=== PATIENT | female | born 1950 | race Caucasian/White ===

== ENCOUNTER 2022-12-13 09:46 | Day surgery (SDC) | payer MEDICARE ==
[2022-12-09 12:07] LABS: BASOPHILS # (AUTO) 0.1 X10'3 (0-0.2); BASOPHILS % (AUTO) 0.9 % (0-1); EOSINOPHILS # (AUTO) 0.3 X10'3 (0-0.9); EOSINOPHILS % (AUTO) 2.8 % (0-6); LYMPHOCYTES # (AUTO) 2.8 X10'3 (1.1-4.8); LYMPHOCYTES % (AUTO) 30.1 % (21-51); MEAN CORPUSCULAR HEMOGLOBIN 29.3 PG (27.0-31.0); MEAN CORPUSCULAR HGB CONC 32.9 g/dL (33.0-36.5); MEAN PLATELET VOLUME 8.2 FL (7.4-10.4); MONOCYTES # (AUTO) 0.7 X10'3 (0-0.9); MONOCYTES % (AUTO) 7.6 % (2-12); NEUTROPHILS # (AUTO) 5.4 X10'3 (1.8-7.7); NEUTROPHILS % (AUTO) 58.6 % (42-75); PRE OP HEMATOCRIT 42.3 % (35.0-45.0); PRE OP HEMOGLOBIN 13.9 g/dL (12.0-16.0); PRE OP PLATELET COUNT 341 X10'3 (140-440); PRE OP WHITE BLOOD COUNT 9.3 10'3 (4.8-10.8); RED BLOOD COUNT 4.76 X10'6 (4.20-5.60); RED CELL DISTRIBUTION WIDTH 13.5 % (11.5-14.5)
[2022-12-09 12:18] LABS: ALBUMIN 3.6 G/DL (3.4-5.0); ALBUMIN/GLOBULIN RATIO 1.1 (1.1-1.5); ALKALINE PHOSPHATASE 85 IU/L (46-116); BLOOD UREA NITROGEN 15 MG/DL (7-18); BUN/CREATININE RATIO 14.9 (10.0-20.0); CALCIUM 9.1 MG/DL (8.5-10.1); CHLORIDE 102 MMOL/L (99-107); CREATININE 1.01 MG/DL (0.40-0.90); PRE OP ALT 25 U/L (30-65); PRE OP ANION GAP 8 (8-16); PRE OP AST 18 U/L (10-37); PRE OP BILIRUB, TOTAL 0.4 MG/DL (0.0-1.0); PRE OP GLUCOSE 110 MG/DL (70-104); PRE OP SODIUM 141 MMOL/L (135-145); TOTAL CARBON DIOXIDE 30.7 MMOL/L (24-32); TOTAL PROTEIN 6.8 G/DL (6.4-8.2); eGFR 54 ML/MIN
[2022-12-13] VITALS (7 sets, daily range): BP systolic 145–169; BP diastolic 64–80; PULSE 61–78; RESP 10–17; TEMP 97.9; O2SAT 93–98
[~2022-12-13] VITALS: Ht 157.5 cm; Wt 63.3 kg
[~2022-12-13 09:46] MED LIST: AMIT50TA15 PO; ASCO-134 PO; AZEL137S4 BOTHNARES; BUPR-72 PO; CALC-723 PO; CHOL400T32 PO; CYAN-34 PO; DIGO250T2 PO; GABA-530 PO; HYDR-3965 PO; LEVO100T9 PO; METF-436 PO; OMEP40CA21 PO; ONDA8TAB13 PO; famotidine 20mg tablet PO ONE; ringers solution, lacted 1,000 ML IV SCH
[2022-12-13] MEDS ORDERED: LIDOcaine 4% (40 mg/ml) topical solution 50ml MM ONE (11:20)
[2022-12-13] MEDS ORDERED: epiNEPHrine 1 mg/ml inj IR PRN (11:20)
[2022-12-13] MEDS ORDERED: aprepitant 40mg capsule PO ONE (12:00)
[2022-12-13] MEDS ORDERED: morphine 4 MG/ML inj SYRINge IV PRN (12:10)
[2022-12-13] MEDS ORDERED: labetalol 20mg/4ml (5mg/ml) syringe IV PRN (12:10)
[2022-12-13] MEDS ORDERED: ondansetron/PF 4mg/2ml inj IV PRN (12:10)
[2022-12-13] MEDS ORDERED: hydrALAZINE 20mg/ml inj. IV PRN (12:10)
[2022-12-13] MEDS ORDERED: proCHLORperazine 10 MG/2 ml inj IV PRN (12:10)
[2022-12-13] MEDS ORDERED: HYDROmorphone/PF 0.2 MG/ML SYRINGE IV PRN ×2 (12:10)
[2022-12-13] MEDS ORDERED: ringers solution, lacted 1,000 ML IV SCH (12:10)
[2022-12-13] MEDS ORDERED: morphine 2 MG/ML inj. syringe IV PRN (12:10)
[2022-12-13] MEDS ORDERED: acetaminophen 1,000mg/100ml IV 100 ML IV PRN (12:10)
[2022-12-13] MEDS ORDERED: epiNEPHrine 1 MG/ML 1 ml ampule **BRONCH ONLY ONE (12:33)
[2022-12-13] MEDS ORDERED: LIDOCAINE 4% (40MG/ML) topical solution 50ml **BRONCH ONLY ONE (12:34)
[2022-12-13] MEDS ORDERED: rocuronium 10mg/ml inj IV ONE (12:58)
[2022-12-13] MEDS ORDERED: midazolam 1 mg/ML 2ml injection ONE (12:58)
[2022-12-13] MEDS ORDERED: fentaNYL/PF 50MCG/1 ML 2ML syringe ONE (12:58)
[2022-12-13] MEDS ORDERED: propofol inj 20 ML IV ONE (12:58)
[2022-12-13] MEDS ORDERED: sevoflurane 250ml liquid IH ONE (13:01)
[2022-12-13] MEDS ORDERED: dexamethasone sod phosphate 10mg/ml inj ONE (13:01)
[2022-12-13] MEDS ORDERED: ondansetron/PF 4mg/2ml inj ONE (13:01)
[2022-12-13] MEDS ORDERED: sugammadex 200mg/2ml injection IV ONE (14:37)
--- NOTE | 2022-12-13 15:00 | NUR ---
Received from OR via [facility] , accompanied by Anesthesiologist GANESH and report given by Anesthesiolgist. PATIENT WITH 20G PIV IN LEFT FOREARM RUNNING LR AT 100. DENIES PAIN. VSS AT THIS TIME. WILL CONTINUE TO ASSESS AND TREAT FOR PAIN PRN. 10L MASK ON WITH 100% SATURATIONS. CXR ORDERED AND PAGED. Addendum: 12/13/22 at 1513 by Garland Chase RN, RN Amended: Links added.
--- NOTE | 2022-12-13 16:00 | NUR ---
ABLE TO SAFELY AMBULATE AND TRANSFER SELF. IV TAKEN OUT WITHOUT ANY COMPLICATIONS. ALL DISCHARGE INSTRUCTIONS COVERED WITH PATIENT AND ALL QUESTIONS ANSWERED. PATIENT TAKEN OUT VIA WHEELCHAIR TO PERSONAL VEHICLE WHERE FAMILY/FRIEND DROVE PATIENT HOME. voided prior to dc and drinking /s co problem. Addendum: 12/13/22 at 1632 by Garland Chase RN, RN Amended: Links added.
== END 2022-12-13 16:00 | disposition home or self-care (01) ==
LOC: PAS 09:46
PROVIDERS: ATTEND Internal Medicine Critical Care Medicine
DX: R22.2 Localized swelling, mass and lump, trunk (principal); I10 Essential (primary) hypertension; E11.9 Type 2 diabetes mellitus without complications; K21.9 Gastro-esophageal reflux disease without esophagitis; E07.9 Disorder of thyroid, unspecified; M19.90 Unspecified osteoarthritis, unspecified site; Z87.891 Personal history of nicotine dependence; Z98.84 Bariatric surgery status; Z98.890 Other specified postprocedural states; Z88.2 Allergy status to sulfonamides; Z88.8 Allergy status to other drugs, medicaments and biological substances
CPT/HCPCS: 31623; 31624; 31628; 31629; 31653; 36415; 71045; 71046; 71250; 80053; 82948; 85025; 87070; 94760; J0171; J1100; J2250; J2405; J2704; J3010; J3490; J7120; J8501; Z7506; Z7508; Z7512; 31622; 31625; 31627; 31654; 88108; 88173; 88305; A4618